=== PATIENT | female | born 1935 | race African-American/Black ===

== ENCOUNTER 2020-04-17 09:42 | Inpatient (IN) ==
[2020-04-17] MEDS ORDERED: ONDANSETRON 4 MG/2 ML VIAL IV PRN (11:05)
[2020-04-17] MEDS ORDERED: GLUCAGON 1 MG VIAL IM PRN (11:07)
[2020-04-17] MEDS ORDERED: DEXTROSE 50% 25 GM/50 ML VIAL IV PRN (11:07)
[2020-04-17] MEDS ORDERED: ATROPINE 1 MG/10 ML SYRINGE IV PRN (11:08)
[2020-04-17 11:20] LABS: Basophils # 0.1 10*3/uL (0.0-0.2); Basophils % 0.5 % (0.0-0.8); Eosinophils % 0.1 % (0.00-10.9); Hemoglobin 12.7 GM/DL (12.0-16.0); Immature Granulocytes % 1.4 %; Immature Granulocytes Absolute 0.19 #; Lymphocytes # 1.4 10*3/uL (1.4-4.0); Lymphocytes % 10.4 % (21.3-54.2); Mean Corpuscular HGB Conc 32.6 GM/DL (32-36); Mean Corpuscular Volume 93.1 FL (87-102); Mean Platelet Volume 10.6 FL (9.6-12.0); Monocytes % 12.8 % (1.7-12.7); Neutrophils % 74.8 % (38.7-73.9); Platelet Count 192 T/CUMM (130-400); Red Blood Count 4.19 MC/CUMM (3.8-5.5); Red Cell Distribution Width 13.3 % (9.3-17.3); White Blood Count 13.6 T/CUMM (4-12)
[2020-04-17 11:23] LABS: ABG Base Excess -4.2 MMOL/L (-2.5-2.5); ABG HCO3 20.7 MMOL/L (20-26); ABG PCO2 57.4 MM HG (35-48); ABG PH 7.236 (7.35-7.45); ABG PO2 64.3 MM HG (80-95)
[2020-04-17] MEDS ORDERED: PANTOPRAZOLE 40 MG VIAL IV SCH (11:30)
[2020-04-17 11:41] LABS: Alanine Aminotransferase 919 U/L (13-56); Albumin 3.4 G/DL (3.4-5.0); Alkaline Phosphatase 93 U/L (45-117); Aspartate Amino Transferase 945 U/L (0-37); Blood Urea Nitrogen 25 MG/DL (7-18); Calcium 8.5 MG/DL (8.5-10.1); Estimated Glom Filtration Rate 28 ML/MIN; Glucose 153 MG/DL (74-106); Osmolality,Calculated 283.5 MOS/KG (273-304); Total Protein 7.1 G/DL (6.4-8.3)
[2020-04-17 11:42] LABS: Troponin I 0.056 NG/ML (0.00-0.045)
[2020-04-17] MEDS: DOPamine 800 MG/250 ML PREMIX IV SCH (11:49)
[2020-04-17] MEDS ORDERED: ENOXAPARIN 40 MG/0.4 ML SYRINGE SUBCUT SCH (12:00)
[2020-04-17] MEDS: SODIUM CHLORIDE 0.9% 1,000 ML IV SCH ×2 (12:19→22:06)
[2020-04-17 12:20] LABS: Ferritin 1306.2 ng/ml (8-252)
[2020-04-17] MEDS: INSULIN LISPRO 100 UNIT/ML SUBCUT SCH ×3 (12:30→23:54)
[2020-04-17] MEDS: FAMOTIDINE 20 MG/2 ML VIAL IV SCH (14:30)
[2020-04-17] MEDS ORDERED: DOBUTamine 500 MG/250 ML PREMIX IV PRN (14:43)
[2020-04-17] MEDS ORDERED: ENOXAPARIN 30 MG/0.3 ML SYRINGE SUBCUT ONE (14:53)
[2020-04-17 17:36] LABS: Apearance,Urine CLEAR (Clear); Bilirubin,Urine Negative (Negative); Blood, Urine Negative (Negative); Glucose,Urine (UA) 50 mg/dL (Negative); Ketones,Urine Negative (Negative); Mucus,Urine Occasional /LPF (Occasional); Nitrite,Urine Negative (Negative); Protein,Urine 30 MG/DL; RBC,Urine 2 /HPF (0-4); Squamous Epithelial Cell,Urine Occasional /HPF (0-10); Urine Color Yellow (Yellow); Urine Urobilinogen < 2.0 EU/DL (0.2-1.0); WBC,Urine 1 /HPF (0-6)
[2020-04-17] MEDS ORDERED: ENOXAPARIN 80 MG/0.8 ML SYRINGE SUBCUT SCH (21:00)
[2020-04-18] MEDS: FAMOTIDINE 20 MG/2 ML VIAL IV SCH ×2 (01:18→14:03)
[2020-04-18 04:37] LABS: Basophils % 0.3 % (0.0-0.8); Hematocrit 36.3 VOL% (35.7-47.0); Hemoglobin 12.1 GM/DL (12.0-16.0); Immature Granulocytes % 0.3 %; Immature Granulocytes Absolute 0.04 #; Lymphocytes # 1.2 10*3/uL (1.4-4.0); Lymphocytes % 10.6 % (21.3-54.2); Mean Corpuscular HGB Conc 33.3 GM/DL (32-36); Mean Platelet Volume 11.2 FL (9.6-12.0); Monocytes % 8.6 % (1.7-12.7); Neutrophils % 80.2 % (38.7-73.9); Platelet Count 173 T/CUMM (130-400); Red Blood Count 4.08 MC/CUMM (3.8-5.5); Red Cell Distribution Width 13.4 % (9.3-17.3); White Blood Count 11.6 T/CUMM (4-12)
[2020-04-18 04:58] LABS: Calcium 8.6 MG/DL (8.5-10.1); Osmolality,Calculated 284.1 MOS/KG (273-304); Risk Ratio 3.4; VLDL CHOLESTEROL 25.4 MG/DL
[2020-04-18] MEDS: INSULIN LISPRO 100 UNIT/ML SUBCUT SCH ×3 (05:49→18:30)
[2020-04-18] MEDS: hydrALAZINE 20 MG/1 ML VIAL IV PRN (08:41)
[2020-04-18] MEDS: ENOXAPARIN 80 MG/0.8 ML SYRINGE SUBCUT SCH ×2 (08:43→21:25)
[2020-04-18] MEDS: amLODIPine 5 MG TABLET PO SCH (10:13)
[2020-04-18] MEDS: CETIRIZINE 10 MG TABLET PO SCH (10:13)
[2020-04-18] MEDS: DOPamine 800 MG/250 ML PREMIX IV SCH (11:48)
[2020-04-18] MEDS: niCARdipine INJ 25 MG in SODIUM CHLORIDE 0.9% 240 ML IV PRN ×2 (14:04→20:45)
[2020-04-18] MEDS: SODIUM CHLORIDE 0.9% 1,000 ML IV SCH (14:05)
[2020-04-19] MEDS: INSULIN LISPRO 100 UNIT/ML SUBCUT SCH ×4 (00:21→18:04)
[2020-04-19] MEDS: SODIUM CHLORIDE 0.9% 1,000 ML IV SCH ×3 (00:25→20:31)
[2020-04-19] MEDS: FAMOTIDINE 20 MG/2 ML VIAL IV SCH ×2 (02:00→14:16)
[2020-04-19] MEDS: niCARdipine INJ 50 MG in SODIUM CHLORIDE 0.9% 480 ML IV PRN ×2 (02:57→14:12)
[2020-04-19 04:13] LABS: ABG Oxygen Saturation 92.1 % (95-100); ABG PCO2 35.4 MM HG (35-48); ABG PH 7.479 (7.35-7.45); ABG PO2 61.5 MM HG (80-95); ABG TCO2 23.2 MMOL/L (23-27); Allen Test Positive; Pt O2 Delivery Device Room Air
[2020-04-19 05:04] LABS: Basophils # 0.1 10*3/uL (0.0-0.2); Basophils % 0.6 % (0.0-0.8); Eosinophils % 0.3 % (0.00-10.9); Hemoglobin 11.8 GM/DL (12.0-16.0); Immature Granulocytes % 0.4 %; Immature Granulocytes Absolute 0.04 #; Lymphocytes # 1.1 10*3/uL (1.4-4.0); Lymphocytes % 11.8 % (21.3-54.2); Mean Corpuscular HGB Conc 32.8 GM/DL (32-36); Mean Corpuscular Volume 90.7 FL (87-102); Mean Platelet Volume 10.6 FL (9.6-12.0); Monocytes % 10.1 % (1.7-12.7); Neutrophils % 76.8 % (38.7-73.9); Platelet Count 158 T/CUMM (130-400); Red Blood Count 3.97 MC/CUMM (3.8-5.5); Red Cell Distribution Width 13.4 % (9.3-17.3); White Blood Count 9.5 T/CUMM (4-12)
[2020-04-19 05:20] LABS: Calcium 8.2 MG/DL (8.5-10.1)
[2020-04-19] MEDS: amLODIPine 5 MG TABLET PO SCH (08:12)
[2020-04-19] MEDS: ENOXAPARIN 80 MG/0.8 ML SYRINGE SUBCUT SCH ×2 (08:12→20:04)
[2020-04-19] MEDS: CETIRIZINE 10 MG TABLET PO SCH (08:12)
[2020-04-19] MEDS: DOPamine 800 MG/250 ML PREMIX IV SCH (11:21)
[2020-04-19] MEDS ORDERED: ALBUTEROL/IPRATROPIUM 3 ML NEB RESP TX PRN (15:16)
[2020-04-19] MEDS: PIPERACILLIN/TAZOBACTAM 3,375 MG in SODIUM CHLORIDE 0.9% 100 ML IV SCH (16:44)
[2020-04-19] MEDS: carvediloL 25 MG TABLET PO SCH (20:04)
[2020-04-19] MEDS: DOCUSATE SODIUM 100 MG CAPSULE PO SCH (20:05)
[2020-04-19] MEDS: ACETAMINOPHEN 325 MG TABLET PO PRN (20:22)
[2020-04-20] MEDS: FAMOTIDINE 20 MG/2 ML VIAL IV SCH ×2 (00:48→13:36)
[2020-04-20] MEDS: PIPERACILLIN/TAZOBACTAM 3,375 MG in SODIUM CHLORIDE 0.9% 100 ML IV SCH ×3 (00:49→17:38)
[2020-04-20] MEDS: INSULIN LISPRO 100 UNIT/ML SUBCUT SCH ×4 (01:02→17:45)
[2020-04-20 04:48] LABS: Basophils # 0.1 10*3/uL (0.0-0.2); Basophils % 0.7 % (0.0-0.8); Eosinophils # 0.1 10*3/uL (0.0-0.87); Eosinophils % 1.4 % (0.00-10.9); Hematocrit 35.8 VOL% (35.7-47.0); Hemoglobin 11.9 GM/DL (12.0-16.0); Immature Granulocytes % 0.3 %; Immature Granulocytes Absolute 0.03 #; Lymphocytes # 1.7 10*3/uL (1.4-4.0); Lymphocytes % 19.9 % (21.3-54.2); Mean Corpuscular HGB Conc 33.2 GM/DL (32-36); Mean Corpuscular Volume 90.2 FL (87-102); Mean Platelet Volume 10.7 FL (9.6-12.0); Monocytes % 10.1 % (1.7-12.7); Neutrophils % 67.6 % (38.7-73.9); Platelet Count 152 T/CUMM (130-400); Red Blood Count 3.97 MC/CUMM (3.8-5.5); Red Cell Distribution Width 13.2 % (9.3-17.3); White Blood Count 8.7 T/CUMM (4-12)
[2020-04-20] MEDS: hydrALAZINE 20 MG/1 ML VIAL IV PRN ×2 (04:54→21:12)
[2020-04-20 05:09] LABS: Osmolality,Calculated 286.8 MOS/KG (273-304)
[2020-04-20] MEDS: SODIUM CHLORIDE 0.9% 1,000 ML IV SCH ×2 (06:35→21:21)
[2020-04-20] MEDS: carvediloL 25 MG TABLET PO SCH ×2 (08:44→21:11)
[2020-04-20] MEDS: CHOLECALCIFEROL 5,000 UNIT TABLET PO SCH (08:44)
[2020-04-20] MEDS: amLODIPine 10 MG TABLET PO SCH (08:44)
[2020-04-20] MEDS: ENOXAPARIN 80 MG/0.8 ML SYRINGE SUBCUT SCH ×2 (08:44→21:12)
[2020-04-20] MEDS: ROSUVASTATIN 20 MG TABLET PO SCH (08:44)
[2020-04-20] MEDS: DOCUSATE SODIUM 100 MG CAPSULE PO SCH ×2 (08:44→21:11)
[2020-04-20] MEDS: CETIRIZINE 10 MG TABLET PO SCH (08:44)
[2020-04-20] MEDS: DOPamine 800 MG/250 ML PREMIX IV SCH (10:40)
[2020-04-20] MEDS: POTASSIUM CHLORIDE 20 MEQ TABLET PO PRN ×4 (15:52→23:19)
[2020-04-21] MEDS: INSULIN LISPRO 100 UNIT/ML SUBCUT SCH ×4 (00:51→18:27)
[2020-04-21] MEDS: PIPERACILLIN/TAZOBACTAM 3,375 MG in SODIUM CHLORIDE 0.9% 100 ML IV SCH ×2 (01:58→08:23)
[2020-04-21] MEDS: FAMOTIDINE 20 MG/2 ML VIAL IV SCH ×2 (02:01→12:53)
[2020-04-21 04:14] LABS: ABG Base Excess 3.2 MMOL/L (-2.5-2.5); ABG HCO3 27.2 MMOL/L (20-26); ABG Oxygen Saturation 95.7 % (95-100); ABG PCO2 35.5 MM HG (35-48); ABG PO2 74.3 MM HG (80-95); ABG TCO2 23.5 MMOL/L (23-27); Allen Test Positive; Pt O2 Delivery Device Room Air
[2020-04-21 05:15] LABS: Calcium 8.5 MG/DL (8.5-10.1)
[2020-04-21] MEDS: hydrALAZINE 20 MG/1 ML VIAL IV PRN ×2 (08:24→23:51)
[2020-04-21] MEDS: ENOXAPARIN 80 MG/0.8 ML SYRINGE SUBCUT SCH (08:27)
[2020-04-21] MEDS: amLODIPine 10 MG TABLET PO SCH (08:27)
[2020-04-21] MEDS: ROSUVASTATIN 20 MG TABLET PO SCH (08:27)
[2020-04-21] MEDS: carvediloL 25 MG TABLET PO SCH ×2 (08:27→21:49)
[2020-04-21] MEDS: CHOLECALCIFEROL 5,000 UNIT TABLET PO SCH (08:27)
[2020-04-21] MEDS: CETIRIZINE 10 MG TABLET PO SCH (08:27)
[2020-04-21] MEDS: POTASSIUM CHLORIDE 20 MEQ TABLET PO PRN (08:27)
[2020-04-21] MEDS: DOCUSATE SODIUM 100 MG CAPSULE PO SCH ×2 (08:27→21:48)
[2020-04-21] MEDS: ACETAMINOPHEN 325 MG TABLET PO PRN ×2 (09:19→21:48)
[2020-04-21] MEDS ORDERED: hydrALAZINE 20 MG/1 ML VIAL IV ONE (10:42)
[2020-04-21] MEDS ORDERED: FUROSEMIDE 40 MG/4 ML VIAL IV ONE (10:43)
[2020-04-21 11:33] LABS: Albumin 2.5 G/DL (3.4-5.0); Bilirubin,Total 0.5 MG/DL (0.2-1.0); Calcium 8.4 MG/DL (8.5-10.1); Osmolality,Calculated 288.1 MOS/KG (273-304); Total Protein 6.4 G/DL (6.4-8.3)
[2020-04-21] MEDS: SODIUM CHLORIDE 0.9% 1,000 ML IV SCH (12:11)
[2020-04-21] MEDS: DOXYCYCLINE HYCLATE 100 MG CAPSULE PO SCH ×2 (12:53→21:47)
[2020-04-21] MEDS ORDERED: POTASSIUM PHOSPHATE 30 MMOL in SODIUM CHLORIDE 0.9% 250 ML IV ONE (13:00)
[2020-04-21] MEDS: hydrALAZINE 25 MG TABLET PO SCH ×2 (16:18→21:47)
[2020-04-21] MEDS ORDERED: ESCITALOPRAM 10 MG TABLET PO SCH (21:00)
[2020-04-21] MEDS: APIXABAN 5 MG TABLET PO SCH (21:48)
[2020-04-22] MEDS: INSULIN LISPRO 100 UNIT/ML SUBCUT SCH ×3 (00:35→14:17)
[2020-04-22] MEDS: FAMOTIDINE 20 MG/2 ML VIAL IV SCH ×2 (02:21→14:19)
[2020-04-22 05:35] LABS: Basophils # 0.1 10*3/uL (0.0-0.2); Basophils % 0.7 % (0.0-0.8); Eosinophils # 0.4 10*3/uL (0.0-0.87); Eosinophils % 5.9 % (0.00-10.9); Hematocrit 32.9 VOL% (35.7-47.0); Hemoglobin 10.9 GM/DL (12.0-16.0); Immature Granulocytes % 0.4 %; Immature Granulocytes Absolute 0.03 #; Lymphocytes # 1.2 10*3/uL (1.4-4.0); Mean Corpuscular HGB Conc 33.1 GM/DL (32-36); Mean Corpuscular Volume 90.1 FL (87-102); Mean Platelet Volume 11.8 FL (9.6-12.0); Monocytes % 15.1 % (1.7-12.7); Neutrophils % 60.9 % (38.7-73.9); Platelet Count 170 T/CUMM (130-400); Red Blood Count 3.65 MC/CUMM (3.8-5.5); Red Cell Distribution Width 13.3 % (9.3-17.3); White Blood Count 7.1 T/CUMM (4-12)
[2020-04-22 05:52] LABS: Calcium 8.9 MG/DL (8.5-10.1); Osmolality,Calculated 286.1 MOS/KG (273-304)
[2020-04-22] MEDS ORDERED: ASPIRIN EC 81 MG TABLET PO SCH (09:00)
[2020-04-22] MEDS: ROSUVASTATIN 20 MG TABLET PO SCH (09:04)
[2020-04-22] MEDS: DOXYCYCLINE HYCLATE 100 MG CAPSULE PO SCH (09:04)
[2020-04-22] MEDS: carvediloL 25 MG TABLET PO SCH (09:04)
[2020-04-22] MEDS: CHOLECALCIFEROL 5,000 UNIT TABLET PO SCH (09:05)
[2020-04-22] MEDS: DOCUSATE SODIUM 100 MG CAPSULE PO SCH (09:05)
[2020-04-22] MEDS: APIXABAN 5 MG TABLET PO SCH (09:05)
[2020-04-22] MEDS: hydrALAZINE 25 MG TABLET PO SCH (09:05)
[2020-04-22] MEDS: CETIRIZINE 10 MG TABLET PO SCH (09:05)
[2020-04-22] MEDS ORDERED: ROSUVASTATIN 20 MG TABLET PO SCH (11:20)
[2020-04-22] MEDS: ACETAMINOPHEN 325 MG TABLET PO PRN (11:36)
[2020-04-22 13:15] LABS: Apearance,Urine CLEAR (Clear); Bacteria,Urine Occasional /HPF (Few); Bilirubin,Urine Negative (Negative); Blood, Urine Negative (Negative); Glucose,Urine (UA) Negative (Negative); Hyaline Casts,Urine 3 /LPF (0-3); Ketones,Urine Negative (Negative); Mucus,Urine Occasional /LPF (Occasional); Nitrite,Urine Negative (Negative); Protein,Urine 30 MG/DL; RBC,Urine 2 /HPF (0-4); Squamous Epithelial Cell,Urine Occasional /HPF (0-10); Urine Color Yellow (Yellow); Urine Specific Gravity 1.011 (1.001-1.035); Urine Urobilinogen < 2.0 EU/DL (0.2-1.0); WBC,Urine 2 /HPF (0-6)
[2020-04-22 13:27] VITALS: BP 162/73
== END 2020-04-22 14:35 | DRG 64 ==
LOC: SUATTDRO 10:56 → N.ICU 10:56 → N.CC 18:39 → N.TELEN 04-20 17:01
PROVIDERS: ADMIT Family Medicine; ATTEND Hospitalist